=== PATIENT | female | born 1995 | race Caucasian/White ===

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

== ENCOUNTER 2017-01-27 17:07 | Emergency (ER) | payer OTHER ==
[~2017-01-27] VITALS: Ht 157.5 cm; Wt 51.4 kg
[2017-01-27 17:21] VITALS: BP 121/58
== END 2017-01-27 18:33 | disposition home or self-care (01) ==
LOC: ED 17:07
DX: S62.307A Unspecified fracture of fifth metacarpal bone, left hand, initial encounter for closed fracture (principal); S00.03XA Contusion of scalp, initial encounter; W17.89XA Other fall from one level to another, initial encounter; Y93.89 Activity, other specified; Y99.8 Other external cause status; Y92.89 Other specified places as the place of occurrence of the external cause

== ENCOUNTER 2018-10-23 14:50 | Emergency (ER) | payer OTHER ==
[~2018-10-23] VITALS: Ht 157.5 cm; Wt 49.0 kg
[2018-10-23 14:58] VITALS: Ht 157.5 cm; Wt 49.0 kg
[2018-10-23 17:13] VITALS: BP 105/55
== END 2018-10-23 17:13 | disposition home or self-care (01) ==
LOC: ED 14:50
DX: S76.191A Other specified injury of right quadriceps muscle, fascia and tendon, initial encounter (principal); M25.461 Effusion, right knee; X58.XXXA Exposure to other specified factors, initial encounter; Y93.89 Activity, other specified; Y92.89 Other specified places as the place of occurrence of the external cause; Y99.8 Other external cause status